=== PATIENT | male | born 1980 | race Caucasian/White ===

== ENCOUNTER 2019-10-19 17:21 | Emergency (ER) | payer MEDICAID ==
[~2019-10-19] VITALS: Ht 172.7 cm; Wt 79.4 kg
[2019-10-19 17:26] VITALS: Ht 172.7 cm; Wt 79.4 kg
[2019-10-19 17:43] LABS: BASOPHIL % 0.4 % (0-2); PLATELET COUNT 195 x10^3mcL (130-400)
[2019-10-19 17:48] LABS: RED CELL DISTRIBUTION WIDTH 15.6 % (11.5-14.5)
[2019-10-19 18:06] LABS: CALCIUM 8.8 mg/dL (8.5-10.1); CARBON DIOXIDE 23.8 mmol/L (21-32); CHLORIDE SERUM 103 mmol/L (98-107); CREATININE SERUM 1.2 mg/dL (0.7-1.3); GFR1 > 60 mL/min; GLUCOSE SERUM 94 mg/dL (74-106); POTASSIUM SERUM 3.1 mmol/L (3.5-5.1); SODIUM SERUM 142 mmol/L (136-145)
[2019-10-19 18:12] LABS: ALBUMIN 4.3 g/dL (3.4-5.0); ALKALINE PHOSPHATASE 50 U/L (46-116); ALT/SGPT 55 U/L (16-63); AST/SGOT 43 U/L (15-37); BILIRUBIN TOTAL 1.5 mg/dL (0.20-1.00); TOTAL PROTEIN, SERUM 7.6 g/dL (6.4-8.2)
[2019-10-19 18:22] LABS: AMPHETAMINE QUAL UR POSITIVE (See below)
[2019-10-19 20:55] VITALS: BP 124/84
== END 2019-10-19 20:55 | disposition short-term general hospital (02) ==
LOC: ED 17:21
PROVIDERS: Emergency Medicine
DX: S32.10XA Unspecified fracture of sacrum, initial encounter for closed fracture (principal); X58.XXXA Exposure to other specified factors, initial encounter; Y93.89 Activity, other specified; Y92.89 Other specified places as the place of occurrence of the external cause; Y99.8 Other external cause status
CPT/HCPCS: G0480; J7030; Q9967

== ENCOUNTER 2020-04-23 10:40 | Emergency (ER) | payer OTHER ==
[~2020-04-23] VITALS: Ht 172.7 cm; Wt 88.9 kg
[~2020-04-23 10:40] MED LIST: SEROQUEL100 MG PO
[2020-04-23 10:46] VITALS: Ht 172.7 cm; Wt 88.9 kg
[2020-04-23 11:54] LABS: BASOPHIL % 0.3 % (0-2); PLATELET COUNT 221 x10^3mcL (130-400)
[2020-04-23 11:57] LABS: RED CELL DISTRIBUTION WIDTH 14.6 % (11.5-14.5)
[2020-04-23 12:05] LABS: microscopic required? YES; urine erythrocyte 1+ (NEGATIVE)
[2020-04-23 12:13] LABS: AMPHETAMINE QUAL UR NONE DETECTED (See below)
[2020-04-23 12:24] LABS: CALCIUM 9.4 mg/dL (8.5-10.1); CARBON DIOXIDE 27.1 mmol/L (21-32); CHLORIDE SERUM 102 mmol/L (98-107); CREATININE SERUM 0.9 mg/dL (0.7-1.3); GFR1 > 60 mL/min; GLUCOSE SERUM 112 mg/dL (74-106); POTASSIUM SERUM 3.8 mmol/L (3.5-5.1); SODIUM SERUM 140 mmol/L (136-145)
[2020-04-23 12:27] LABS: ALBUMIN 3.9 g/dL (3.4-5.0); ALKALINE PHOSPHATASE 76 U/L (46-116); ALT/SGPT 68 U/L (16-63); AST/SGOT 15 U/L (15-37); BILIRUBIN TOTAL 0.33 mg/dL (0.20-1.00); TOTAL PROTEIN, SERUM 7.9 g/dL (6.4-8.2)
--- NOTE | 2020-04-23 22:33 | NUR ---
Earlier spoke with Alyssa/RN regarding patient. Intake has been completed for possible bed placement at [facility]. Pending COVID PCR results. Advised to call once results are received.
[2020-04-25 01:49] VITALS: BP 148/92
== END 2020-04-24 23:30 | disposition short-term general hospital (02) ==
LOC: ED 10:40
PROVIDERS: Emergency Medicine
DX: R45.851 Suicidal ideations (principal); F20.0 Paranoid schizophrenia; I10 Essential (primary) hypertension; Z20.828 Contact with and (suspected) exposure to other viral communicable diseases
CPT/HCPCS: G0480; J1630; J2060; J7030; U0003